=== PATIENT | female | born 1975 | race Caucasian/White ===

== ENCOUNTER 2018-08-08 08:07 | Emergency (ER) | payer BC ==
--- OUTSIDE RECORDS SUMMARY | 2018-08-08 08:22 | XMS REPORT | Continuity of Care Document ---
:1975 External Reference #:[id number] Author Name Lena Rahamn NP Address [address] [place] [address] Care Team Providers Name Role Phone Yvette Levi MD Primary Care Physician Unavailable Payers Date Identification Numbers Payment Provider Subscriber Policy Number: [id number] [employer] Of [employer]I [place] Group Name: [employer] BC/BS [address]: [id number] [address] [place] [address] Expires: 2017 Policy Number: [id number] [employer]/BS Of [place] PayID: [id number] [address] [place] [address] Advance Directives Description No Information Available Problems Description No Information Family History Date Family Member(s) Observation Comments General Diabetes Social History Type Date Description Comments Sex Unknown Cigarette Use Denies Cigarette Use Smokeless Tobacco Never Used Smokeless Tobacco ETOH Use Drinks Alcoholic Beverages Rarely Recreational Drug Use Denies Drug Use Tobacco Use Start: Unknown Patient has never smoked Smoking Status Reviewed: 03/05/18 Patient has never smoked Allergies, Adverse Reactions, Alerts Description No Known Drug Allergies Medications Active Medications SIG Qnty Indications Ordering Date Provider Glucagon Emergency as directed 1units Lena A 01/01/2018 Rahman, RAILROAD SURVEYOR 1mg Kit Freestyle Test test 10 times a 900units Lena A 01/01/2018 day or as Rahman, RAILRO[employer] SURVEYOR Strips directed as needed Novolog via insulin pump, 30ml Lena A 11/17/2017 100Unit/ML max daily dose Rahman, RAILROAD SURVEYOR Solution 100 units Onetouch Verio 4-8 times a day 150units Darek V. 11/17/2017 tests MD Arlette Strips Dexcom Sensors to be changed 90units E10.65 Darek V. 09/15/2017 every 10 days MD Arlette Immunizations Description No Information Available Vital Signs Date Vital Result Comment 07/29/2018 1:33pm Weight 120.00 lb Weight 54.432 kg BMI (Body Mass Index) 20.9 kg/m2 BP Systolic 116 mmHg BP Diastolic 72 mmHg Respiratory Rate 18 /min Height 63.5 inches 5'3.50" Height in cm's 161.3 cm Hemoglobin A1C 10.3% done in office today 03/05/2018 11:43am Weight 119.38 lb Weight 54.148 kg BMI (Body Mass Index) 20.8 kg/m2 BP Systolic 116 mmHg BP Diastolic 62 mmHg Height 63.5 inches 5'3.50" Height in cm's 161.3 cm Hemoglobin A1C 10.8% done in office today 01/01/2018 8:43am Weight 119.38 lb Weight 54.148 kg BMI (Body Mass Index) 20.8 kg/m2 BP Systolic 118 mmHg BP Diastolic 68 mmHg Respiratory Rate 18 /min Height 63.5 inches 5'3.50" Height in cm's 161.3 cm Hemoglobin A1C 9.8% done in office today 08/28/2017 8:21am Weight 122.25 lb Weight 55.453 kg BMI (Body Mass Index) 21.3 kg/m2 BP Systolic 126 mmHg BP Diastolic 64 mmHg Heart Rate 72 /min Respiratory Rate 18 /min Height 63.5 inches 5'3.50" Height in cm's 161.3 cm Hemoglobin A1C 8.6% done in office today Results Test Date Facility Test Result H/L Range Note Microalbumin Random 01/01/2018 [facility] ([facility]) Ur Albumin <5.0 mg/L 1 Urine [address] [place] [address] [phone] Ur Creatinine 18.4 mg/dL Laboratory test finding 09/30/2017 N2N/CCD Import Free T4 1.03 ng/dL 0.75-1.54 Magnesium 2.0 mg/dL 1.7-2.2 TSH 2.08 uIU/mL 0.5-6.0 Auto Diff 09/30/2017 N2N/CCD Import Granulocyte # 3.5 10^3/uL 2.0-7.8 Granulocyte % 63.3 % 42.2-75.2 Lymphocytes # 1.6 10^3/uL 0.6-4.1 Lymphocytes % 28.10 % 20.5-51.1 Monocytes # 0.5 10^3/uL 0.0-1.8 Monocytes % 8.60 % 1.7-9.3 CBC 09/30/2017 N2N/CCD Import HCT 37.7 % 37-52 HGB 12.4 g/dL 12.0-18.0 MCH 26.4 pg 26.0-32.0 MCHC 32.9 g/dL 31.0-36.0 MCV 80.3 fL 80.0-99.9 MPV 7.7 fL 7.4-10.4 Platelets 252 10^3/uL 130-400 RBC 4.69 10^6/uL 4.2-6.1 RDW 12.80 % 11.0-15.0 WBC 5.6 10^3/uL 4.8-10.8 Comp. Metabolic 09/30/2017 N2N/CCD Import A/G Ratio (Calc) 1.3 Ratio 1.1 -2.2 Albumin 3.97 g/dL 3.3-4.50 Alk Phosphatase 41.0 U/L 38-126 Anion Gap (Calc) 10.7 1 7-16 BUN 9.8 mg/dL 7-21 BUN/Crea Ratio 11.1 Ratio 7-25 Calcium 9.3 mg/dL 9-10.5 Chloride 103 mmol/L 98-110 Co2 22.3 mmol/L 22-30 Creatinine 0.88 mg/dL 0.52-1.25 Globulin (Calc) 3.11 g/dL 2.3-3.5 Glucose 279.3 mg/dL High 65-110 Potassium 3.8 mmol/L 3.6-5.2 SGPT (Alt) 16.0 U/L 7-56 Sgot (Ast) 15.0 U/L 5-40 Sodium 136 mmol/L Low 137-145 Total Bilirubin 0.42 mg/dL 0.2-1.3 Total Protein 7.08 g/dL 6.3-8.2 eGFR (Female) >60 2 1 Unable to calculate MicroAlb Ratio. Ur Albumin less than Linearity 2 For patients, multiply result by 1.159 Units expressed as mL/min/1.73m^2 Normal Range is > or=to 60. Procedures Description No Information Available Encounters Type Date Location Provider Dx Diagnosis Office Visit 03/05/2018 [facility] Darek Grajeda E10.65 Type 1 diabetes 11:30a Ritesh & MD Arlette mellitus with Endocrinology hyperglycemia F41.9 Anxiety disorder, unspecified Office Visit 01/01/2018 [facility] Lena Malcolm E10.65 Type 1 diabetes 8:30a Ritesh & JOSIAS Rahman mellitus with Endocrinology hyperglycemia Office Visit 08/28/2017 [facility] Darek Grajeda E10.65 Type 1 diabetes 8:00a Ritesh & MD Arlette mellitus with Endocrinology hyperglycemia F41.9 Anxiety disorder, unspecified Plan of Treatment Future Appointment(s):10/29/2018 2:00 pm - Lena Rahman NP at [facility] Ybujclgqqdref70/24/2019 - Lena Rahman [id number] Type 1 diabetes mellitus with hyperglycemiaNew Labs:Lipid Panel, Ordered: Comprehensive Panel, Ordered: 07/29/18TSH, Ordered: 07/29/18Microalbumin Random Urine, Ordered: 07/29/18Comments:-Her diabetic control right now was poor. I have asked her to focus on making sure she takes her bolus with her breakfast at every meal. I would like her to concentrate on 1 meal right now. She still needs to do corrections with her other meals but we have discussed concentrating on 1 thing initially. I have discussed how she is being very reactive instead of proactive with her blood sugars. Dana some of this issue will be solved with her going back on her sensor. Additionally, we have discussed that she needs to be more aggressive with her bolusing. She feels that she is in a better place mentally that she can do that at this time.-I have reviewed with the patient what Type 1 diabetes is, the complications related to poorly controlled diabetes and what the patient needs to be working on to improve the control.- She asked specifically about heart disease and diabetes. I have asked her to get her cholesterol level checked in the near future. I will call her with the results. I have recommended that she have an annual visit with her primary care doctor as well to see if any further testing is [id number] Anxiety disorder, unspecified
[2018-08-08 08:29] VITALS: BP 105/75
--- NOTE | 2018-08-08 08:39 | UC ---
Respiratory Complaint HPI - HPI Summary HPI Summary: Per iron miner: "c/o sinus congestion x 4 days. States has not improved. States at times is running warm. Productive cough with yellow green secretions. " -mild pain 2/10 over cheeks and teeth. has had some warm flashes but no fever. no wheezingm, no asthma. no Fhx asthma. -used netti pot x1. - History of Current Complaint Chief Complaint: UCRespiratory Stated Complaint: SINUS COMPLAINT Time Seen by Provider: 08/08/18 08:28 Hx Last Menstrual Period: 08/07/18 Pain Intensity: 3 - Allergies/Home Medications Allergies/Adverse Reactions: Allergies Allergy/AdvReac Type Severity Reaction Status Date / Time No Known Allergies Allergy Verified 08/08/18 08:24 PMH/Surg Hx/FS Hx/Imm Hx Previously Healthy: Yes Endocrine History: Diabetes - Surgical History Surgical History: Yes Surgery Procedure, Year, and Place: x3 - Family History Known Family History: Negative: Respiratory Disease - no asthma - Social History Alcohol Use: Occasionally Substance Use Type: None Smoking Status (MU): Never Smoked Tobacco Review of Systems All Other Systems Reviewed And Are Negative: Yes Constitutional: Positive: Negative Skin: Positive: Negative. Negative: Rash Eyes: Positive: Negative ENT: Positive: Nasal Discharge, Sinus Congestion, Sinus Pain/Tenderness Respiratory: Positive: Cough. Negative: Shortness Of Breath Cardiovascular: Positive: Negative. Negative: Palpitations, Chest Pain Gastrointestinal: Positive: Negative Motor: Positive: Negative Neurovascular: Positive: Negative Musculoskeletal: Positive: Negative Neurological: Positive: Negative Psychological: Positive: Negative Is Patient Immunocompromised?: No Physical Exam Triage Information Reviewed: Yes Appearance: Well-Appearing, No Pain Distress, Well-Nourished - very pleasant, good historian Vital Signs: Initial Vital Signs Temp 97.7 F 08/08/18 08:25 Pulse 76 08/08/18 08:25 Resp 15 08/08/18 08:25 BP 105/75 08/08/18 08:25 Pulse Ox 100 08/08/18 08:25 Vital Signs Reviewed: Yes Eye Exam: Normal ENT: Positive: Hearing grossly normal, Pharynx normal - w/ mild PND only, TMs normal, Uvula midline. Negative: Pharyngeal erythema, Nasal congestion, Nasal drainage, Tonsillar swelling, Tonsillar exudate, Hoarse voice, Dental tenderness , Sinus tenderness Dental Exam: Normal Neck exam: Normal Neck: Positive: Supple, Nontender, No Lymphadenopathy Respiratory Exam: Normal Respiratory: Positive: Lungs clear, Normal breath sounds, No respiratory distress, No accessory muscle use. Negative: Crackles, Rhonchi, Stridor, Wheezing Cardiovascular Exam: Normal Cardiovascular: Positive: RRR, No Murmur, Pulses Normal Abdominal Exam: Normal Musculoskeletal Exam: Normal Neurological Exam: Normal Psychological Exam: Normal Skin Exam: Normal Respiratory Course/Dx - Differential Dx/Diagnosis Differential Diagnosis/HQI/PQRI: Asthma, Bronchitis, Lower Resp Infection, Sinusitis Provider Diagnosis: Upper respiratory infection, Bronchitis Discharge - Sign-Out/Discharge Documenting (check all that apply): Patient Departure All imaging exams completed and their final reports reviewed: No Studies - Discharge Plan Condition: Stable Disposition: HOME Prescriptions: Albuterol HFA INHALER* [Ventolin HFA Inhaler*] 2 puff INH Q4H PRN 14 Days #1 mdi PRN Reason: Cough Patient Education Materials: Upper Respiratory Infection (ED), Acute Bronchitis (ED) Referrals: Yvette Levi MD [Primary Care Provider] - If Needed Additional Instructions: There is no evidence for any bacterial infection at this time. Your symptoms at this point are viral in nature. Continue using the netti pot with distilled water daily followed by OTC flonase nasal spray. Tylenol for pain. If your symptoms worsen/persist for 10-14 days, contact your PCP or you can follow up here for consideration of antibiotic. -The albuterol inhaler can be used every 4-6 hrs as needed for cough/tightness/ wheezing for the mild bronchitis. - Billing Disposition and Condition Condition: STABLE Disposition: Home
== END 2018-08-08 08:59 | disposition home or self-care (01) ==
LOC: UCCORT 08:07
DX: J06.9 Acute upper respiratory infection, unspecified (principal); J40 Bronchitis, not specified as acute or chronic; E11.9 Type 2 diabetes mellitus without complications
CPT/HCPCS: 99202; G0463

== ENCOUNTER 2018-10-12 07:45 | Emergency (ER) | payer BC ==
[2018-10-12 08:05] VITALS: BP 109/62
--- NOTE | 2018-10-12 08:20 | UC ---
Skin Complaint HPI - HPI Summary HPI Summary: Pt presents with c/o erythematous, tender skin at insulin "pod" pump site on LLQ. Pt has been using Pod X 12 motnhs and not had previous reaction. Pt noticed that pod site "felt wrong" and removed pod and placed at new site. - History of Current Complaint Time Seen by Provider: 10/12/18 08:01 Stated Complaint: INFUSION SITE COMPLAINT Hx Obtained From: Patient Hx Last Menstrual Period: 27 days ?: No Onset/Duration: Gradual Onset, Lasting Days, Still Present, Worse Since - onset Skin Exposure Onset/Duration: Days Ago Timing: Constant Onset Severity: Mild Current Severity: Moderate Pain Intensity: 2 Location: Discrete - LLQ Character: Redness, Painful Aggravating Factor(s): Touch Associated Signs & Symptoms: Positive: Tenderness Related History: Diabetes, Other: - insulin POD site - Allergy/Home Medications Allergies/Adverse Reactions: Allergies Allergy/AdvReac Type Severity Reaction Status Date / Time No Known Allergies Allergy Verified 10/12/18 07:56 Home Medications: Home Medications Cholecalciferol TAB* [Vitamin D TAB*] 1,000 unit PO DAILY 10/12/18 [History Confirmed 10/12/18] Multivitamin [Multivitamins] 1 each PO DAILY 10/12/18 [History Confirmed ] PMH/Surg Hx/FS Hx/Imm Hx Previously Healthy: Yes Endocrine History: Diabetes - Surgical History Surgical History: Yes Surgery Procedure, Year, and Place: x 3 - Family History Known Family History: Positive: Cardiac Disease Negative: Respiratory Disease - no asthma - Social History Occupation: Employed Full-time Lives: With Family Alcohol Use: Occasionally Substance Use Type: None Smoking Status (MU): Never Smoked Tobacco Have You Smoked in the Last Year: No - Immunization History Vaccination Up to Date: Yes Review of Systems All Other Systems Reviewed And Are Negative: Yes Constitutional: Positive: Negative Skin: Positive: Other - erythema Eyes: Positive: Negative ENT: Positive: Negative Respiratory: Positive: Negative Cardiovascular: Positive: Negative Gastrointestinal: Positive: Negative Genitourinary: Positive: Negative Motor: Positive: Negative Neurovascular: Positive: Negative Musculoskeletal: Positive: Negative Neurological: Positive: Negative Psychological: Positive: Negative Is Patient Immunocompromised?: No Physical Exam Triage Information Reviewed: Yes Appearance: Well-Appearing Vital Signs: Initial Vital Signs Temp 98.1 F 10/12/18 07:59 Pulse 103 10/12/18 07:59 Resp 18 10/12/18 07:59 BP 109/62 10/12/18 07:59 Pulse Ox 100 10/12/18 07:59 Vital Signs Reviewed: Yes Eye Exam: Normal ENT Exam: Normal Dental Exam: Normal Neck exam: Normal Respiratory Exam: Normal Respiratory: Positive: No respiratory distress Abdomen Description: Positive: Other: - tendereyrhtematous skin LLQ ~ 3 cm in diameter Musculoskeletal Exam: Normal Neurological Exam: Normal Psychological Exam: Normal Skin Exam: Other - erythemtous tender skin LLQ ~ 3 cm diameter Course/Dx - Differential Diagnoses - Skin Complaint Differential Diagnoses: Cellulitis, Contact Dermatitis - Diagnoses Provider Diagnosis: Cellulitis, Contact dermatitis Discharge - Sign-Out/Discharge Documenting (check all that apply): Patient Departure All imaging exams completed and their final reports reviewed: No Studies - Discharge Plan Condition: Stable Disposition: HOME Prescriptions: Cephalexin CAP* [Keflex 500 CAP*] 500 mg PO Q8H #21 cap Miconazole Nitrate [Monistat 3] 1 each VG BEDTIME #1 kit Patient Education Materials: Antihistamine (By mouth), Contact Dermatitis (ED) , Cellulitis (ED) Referrals: Yvette Levi MD [Primary Care Provider] - As Soon As Possible - Billing Disposition and Condition Condition: STABLE Disposition: Home - Attestation Statements Provider Attestation: I was available for consult. This patient was seen by the ASNJAY. The patient was not presented to, seen by, or examined by me. -Ernst
== END 2018-10-12 08:28 | disposition home or self-care (01) ==
LOC: UCCORT 07:45
DX: L03.311 Cellulitis of abdominal wall (principal); L25.9 Unspecified contact dermatitis, unspecified cause; E11.9 Type 2 diabetes mellitus without complications; Z96.41 Presence of insulin pump (external) (internal)
CPT/HCPCS: 99212; G0463

== ENCOUNTER 2018-12-12 11:47 | Emergency (ER) | payer BC ==
[2018-12-12 12:28] VITALS: BP 129/85
--- NOTE | 2018-12-12 13:03 | UC ---
Respiratory Complaint HPI - HPI Summary HPI Summary: Pt presents with c/o cough, chest congestion, sob and wheezing X 1 month. Pt states that she is feeling more fatigued and more chest congestion over the last few days. - History of Current Complaint Chief Complaint: UCRespiratory Stated Complaint: COUGH Time Seen by Provider: 12/12/18 12:47 Hx Obtained From: Patient Hx Last Menstrual Period: one week ?: No Onset/Duration: Gradual Onset, Lasting Weeks, Still Present, Worse Since - onset Timing: Constant Severity Initially: Mild Severity Currently: Moderate Pain Intensity: 0 Character: Cough: Productive Aggravating Factors: Exertion, Deep Breaths, Recumbent Position Alleviating Factors: Nothing Associated Signs And Symptoms: Positive: Wheezing, URI, Nasal Congestion - Risk Factors Pulmonary Embolism Risk Factors: Negative Cardiac Risk Factors: Diabetes Pseudomonas Risk Factors: Repeated Antibiotics Past 3 Months Tuberculosis Risk Factors: Diabetes - Allergies/Home Medications Allergies/Adverse Reactions: Allergies Allergy/AdvReac Type Severity Reaction Status Date / Time No Known Allergies Allergy Verified 12/12/18 12:27 PMH/Surg Hx/FS Hx/Imm Hx Previously Healthy: Yes Endocrine History: Diabetes - Surgical History Surgical History: Yes Surgery Procedure, Year, and Place: x 3 - Family History Known Family History: Positive: Cardiac Disease Negative: Respiratory Disease - no asthma - Social History Occupation: Employed Full-time Lives: With Family Alcohol Use: Rare Substance Use Type: None Smoking Status (MU): Never Smoked Tobacco Have You Smoked in the Last Year: No - Immunization History Vaccination Up to Date: Yes Review of Systems All Other Systems Reviewed And Are Negative: Yes Constitutional: Positive: Chills, Fatigue Skin: Positive: Negative Eyes: Positive: Negative ENT: Positive: Negative Respiratory: Positive: Shortness Of Breath, Cough Cardiovascular: Positive: Negative Gastrointestinal: Positive: Negative Genitourinary: Positive: Negative Motor: Positive: Negative Neurovascular: Positive: Negative Musculoskeletal: Positive: Negative Neurological: Positive: Negative Psychological: Positive: Negative Is Patient Immunocompromised?: No Physical Exam Triage Information Reviewed: Yes Appearance: Well-Appearing Vital Signs: Initial Vital Signs Temp 99.3 F 12/12/18 12:15 Pulse 79 12/12/18 12:15 Resp 18 12/12/18 12:15 BP 129/85 12/12/18 12:15 Pulse Ox 100 12/12/18 12:15 Vital Signs Reviewed: Yes Eye Exam: Normal ENT: Positive: Nasal congestion Dental Exam: Normal Neck exam: Normal Respiratory: Positive: Wheezing Cardiovascular Exam: Normal Musculoskeletal Exam: Normal Neurological Exam: Normal Psychological Exam: Normal Skin Exam: Normal Diagnostics - Radiology No standard instances Radiology Interpretation Completed By: Radiologist - [place] Folder: Eduar Rudd C, ([id number]) Music Video Director: JANNET (JANNET) Report Date: 10/2018 12:52:00 Report Status: Final Start of Report Content = Patient Name: SHIRLEY VELIZ Medical Record#: [id number] Ordering Physician : Brianna Zhu AERONAUTICAL ENGINEERING TEACHER Acct.#: [id number] : 1975 Age: 43 Sex: F [facility] Exam Date: 12/12/18 1252 ADM Status: REG ER Order Information: CHEST PA LAT 2 VWS Accession Number: [id number] CPT: 49819 INDICATION: 1 month shortness of breath and cough. COMPARISON: No relevant prior exams available on the [facility] PACS for comparison. TECHNIQUE: Dual energy PA and lateral views of the chest were obtained. REPORT: Elevated lung volumes. No focal pulmonary lesion, compelling alveolar consolidation, pleural effusion, pneumothorax. The heart, pulmonary vasculature, and mediastinal contours are unremarkable. Unremarkable soft tissue contours and osseous structures. IMPRESSION: #. Elevated lung volumes may reflect obstructive lung disease or simply exuberant inspiratory effort for examination. #. No evidence for acute intrathoracic disease. ___ <Electronically signed by Eduar Rudd MD in OV> 12/12/18 1304 Dictated By: Eduar Rudd MD Dictated Date/Time: 12/12/18 1302 Transcribed Date/Time : 12/12/18 1302 Copy to: CC:Yanna Bhat MD; Brianna Zhu AERONAUTICAL ENGINEERING TEACHER; Yvette Levi MD Imaging - [facility] - [facility] [address] [address] [place], [place] [id number] [place] [id number] ph [phone]) ph ([phone]) ph ([phone]) End of Report Content Respiratory Course/Dx - Course Course Of Treatment: I discussed more regular and frequent use of her alb INH and pt verbalized understanding and agreed to plan of care. - Differential Dx/Diagnosis Differential Diagnosis/HQI/PQRI: Bronchitis, Influenza Provider Diagnosis: Upper respiratory infection Discharge ED - Sign-Out/Discharge Documenting (check all that apply): Patient Departure All imaging exams completed and their final reports reviewed: Yes - Discharge Plan Condition: Stable Disposition: HOME Prescriptions: Cetirizine* [ZyrTEC 10 MG TAB*] 10 mg PO DAILY #10 tab guaiFENesin [Mucinex] 600 mg PO Q12H #14 tab.er.12h Patient Education Materials: Upper Respiratory Infection (ED) Referrals: Yvette Levi MD [Primary Care Provider] - If Needed Additional Instructions: Please follow up with your PCP as needed. If your symptoms do not improve or they worsen, please seek care at the closest emergency room. - Billing Disposition and Condition Condition: STABLE Disposition: Home
== END 2018-12-12 13:34 | disposition home or self-care (01) ==
LOC: UCCORT 11:47
DX: J06.9 Acute upper respiratory infection, unspecified (principal); E11.9 Type 2 diabetes mellitus without complications
CPT/HCPCS: 71046; 99212; G0463